=== PATIENT | male | born 1955 | race Caucasian/White ===

== ENCOUNTER → 2019-06-13 | Outpatient (CLI) | payer MEDICARE, OTHER, SELFPAY ==
--- NOTE | 2019-06-13 07:52 | AAAS_ITS ---
Reason For Study: Screening Aorta Measurements Aorta Doppler Measurements Proximal aorta measures1.80 x 1.82cm. in cross- Peak systolic flow velocities within the proximal sectional axis. aorta measure 91.6 cm/sec. Proximal aorta measures1.83cm. in longitudinal Peak systolic flow velocities within the mid aorta axis. measure 112.5 cm/sec. Mid aorta measures1.74 x 1.76cm. in cross- Peak systolic flow velocities within the distal sectional axis. aorta measure 104.5 cm/sec. Mid aorta measures1.72cm. in longitudinal axis. Distal aorta measures1.59 x 1.59cm. in cross- sectional axis. Distal aorta measures1.59cm. in longitudinal axis. Left Iliac Artery Left iliac artery measures 1.20 x 1.18 cm. in the cross-sectional axis. Left iliac artery measures 1.19 cm. in the longitudinal axis. Peak systolic velocity in the left iliac artery measures 119.8 cm/sec. Right Iliac Artery Right iliac artery measures 1.14 x 1.15 cm. in the cross-sectional axis. Right iliac artery measures 1.11 cm. in the longitudinal axis. Peak systolic velocity in the right iliac artery measures 119.8 cm/sec. Procedure Aorta IVC Iliac vasculature or bypass grafts [id number]. Exam performed in department. Interpretation Summary The dimensions of the intra-abdominal aorta are normal, without evidence of aneurysmal dilatation. The iliac arteries are also normal in size bilaterally. The intra-abdominal aorta and iliac arteries appear patent, demonstrating normal, pulsatile arterial flow and peak systolic velocities. Ordering Physician: Terri Stewart Referring Physician: Zeus Posada Performed By: Aixa Garcia RVT
== END | disposition home or self-care (01) ==
LOC: CVS 07:50
PROVIDERS: Family Provider Family Medicine; PCP Family Medicine; Referring Provider Registered Nurse; Visit Provider Registered Nurse
DX: Z13.89 Encounter for screening for other disorder (principal)
CPT/HCPCS: 76706

== ENCOUNTER 2019-09-08 15:21 | Emergency (ER) | payer MEDICARE, OTHER, SELFPAY ==
[2019-09-08 15:22] VITALS: BP 154/77; PULSE 66; PULSE 67; RESP 18; TEMP 37; O2SAT 100; BMI 33.7
--- NOTE | 2019-09-08 15:58 | ED.DCSUM_ITS ---
History of Present Illness Informant: Patient Occurred: Today Mechanism/Context: Fall Onset: Today Context: Sudden Onset Timing: Continuous Quality of Pain: Sharp Location: Left quadricep Current Severity: Moderate Maximum Severity: Severe Worsened by: Movement Relieved by: Rest Associated Symptoms: Negative for: Parasthesia, Weakness, Loss of Funtion Narrative: 64-year-old male presents with left quadricep injury. He slipped on ice earlier. He fell. His leg got caught beneath him. He felt a sharp pop in his distal quad. He is having difficulty walking. No numbness tingling weakness. He did not hit his head or lose consciousness and did not have any prodromal symptoms. He is having significant swelling and is having difficulty walking. He had a similar injury to the right quadricep that required surgery a few years ago. He is not on anticoagulation. Denies any other injuries. Tetanus Immunization: Unknown Prior similar symptoms: Yes Recent Illness/Hospitalization: No <Keyur Curtis - Last Filed: 09/08/19 15:58> <Halley Hidalgo - Last Filed: 09/08/19 23:18> Chief Complaint: Lower Extremity Injury Past Medical History Prior records reviewed: Yes Past Medical History: - - Hyperlipidemia Surgical History: - - Repair right quadriceps tendon Lives: With Family Smoking Status: Never smoker Alcohol: Occasional <Keyur Curtis - Last Filed: 09/08/19 15:58> <Halley Hidalgo - Last Filed: 09/08/19 23:18> - Allergies and Home Meds Allergies/Adverse Reactions: Allergies No Known Allergies Allergy (Verified 09/08/19 15:22) Primary Care Physician: Rosanna Bernal DO [STAFF PHYSICIAN] - (Please call the office tomorrow, you will be seen on by Dr. Bernal) Zeus Posada MD [Primary Care Provider] - Review of Systems All systems negative except as indicated General: Denies: Chills, Fever Eyes: Denies: Visual changes - bilaterally, Blurred Vision - bilaterally ENT: Denies: Rhinorrhea, Sore throat Cardiovascular: Denies: Chest pain, Palpitations Respiratory: Denies: Dyspnea, Cough Gastrointestinal: Denies: Abdominal pain, Nausea, Vomiting, Diarrhea Genitourinary: Denies: Dysuria, Hematuria, Frequency Musculoskeletal: Reports: Swelling, Extremity Pain. Denies: Neck pain, Back pain Skin: Denies: Rash, Abscess, Abrasions, Wounds Neurological: Denies: Weakness, Parasthesia, Numbness Hematologic: Denies: Easy bruising, Easy bleeding <Keyur Curtis - Last Filed: 09/08/19 15:58> Physical Exam Vital Signs/Narrative: Vital Signs Temp Pulse Resp BP Pulse Ox 09/08/19 15:22 98.6 F 67 18 154/77 H 100 Inital Vital Signs reviewed: Yes - Extremity Exam Left Femur: - - Patient has swelling and bruising distal quadricep. Compartments are soft. There is no bony tenderness of the knee. He has no leg swelling or calf tenderness or pain over his Achilles. DP and PT pulses are both normal. He is able to actively plantarflex and dorsiflex normally. He has very limited flexion at the knee due to pain and limited extension but his extensor mechanism is intact. There is no hip pain on palpation or back pain on palpation. General: Well nourished, Well developed Head: Normocephalic, Atraumatic Eyes: Perrl, EOMI ENT: No Trauma, Moist Mucous Membranes Neck: Nontender, Full ROM Cardiovascular: Regular rate, Regular rhythm Respiratory: No distress, CTA bilaterally, Chest nontender Abdomen: Soft, Nontender, Nondistended, Normal bowel sounds, No masses Back: Nontender Skin: Normal color, No rash, No Trauma Neurological: Alert, Oriented x3 Psychological: Normal affect <Keyur Curtis - Last Filed: 09/08/19 15:58> Diagnostic/Tx/Re-eval - Medical Decision Making On exam concern is for a quadricep tendon rupture. He does have an intact extensor mechanism. He is neurovascularly intact distally. Discussed with him that I do not feel imaging is indicated and he is agreeable. I spoke with the on-call orthopedic surgeon Dr. Bernal. Mended that the patient be placed in a knee immobilizer and she will see him in the office on . He was advised to rest ice and elevate. He was offered a prescription for analgesia but declines. He was advised to return for worsening symptoms otherwise follow- up as scheduled. - Critical Care Time Critical care time (excluding procedures): Discussing w/Consultants <Keyur Curtis - Last Filed: 09/08/19 15:58> - Medical Decision Making I have personally performed a [id number] assessment of the patient and have reviewed the PA note. My waters findings include history: 64-year-old male presenting with left lower extremity pain following fall. His extensor mechanism is intact. Painful range of motion. Neurovascularly intact distally. He was put in a knee immobilizer. He will follow-up with orthopedics. Advised return to the ED for worsening complaints. <Halley Hidalgo - Last Filed: 09/08/19 23:18> ED Disposition <Keyur Curtis - Last Filed: 09/08/19 15:58> <Halley Hidalgo - Last Filed: 09/08/19 23:18> - Plan for ED Patient: Disposition: Home or Assisted Living Diagnosis: Quadriceps muscle strain Instructions: MUSCLE STRAIN, Extremity Referrals: Zeus Posada MD [Primary Care Provider] - Rosanna Bernal DO [STAFF PHYSICIAN] - (Please call the office tomorrow, you will be seen on by Dr. Bernal)
== END 2019-09-08 16:12 | disposition home or self-care (01) ==
PROVIDERS: Emergency Provider Physician Assistant Medical; PCP Family Medicine
DX: S76.112A Strain of left quadriceps muscle, fascia and tendon, initial encounter (principal); W00.0XXA Fall on same level due to ice and snow, initial encounter; Y93.01 Activity, walking, marching and hiking; Y92.89 Other specified places as the place of occurrence of the external cause; Y99.8 Other external cause status
CPT/HCPCS: 99283

== ENCOUNTER → 2019-09-12 10:45 | Outpatient (CLI) | payer MEDICARE, OTHER, SELFPAY ==
[2019-09-12 10:36] VITALS: BMI 33.7
--- NOTE | 2019-09-12 10:46 | RAD_ITS ---
STUDY: X-RAY - LEFT KNEE REASON FOR EXAM: Knee swelling. TECHNIQUE: 4 view(s) of the knee. COMPARISON: None. FINDINGS: Normal visualized distal femur. Normal visualized proximal tibia and fibula. Normal proximal tibiofibular articulation. There is mild joint space narrowing of the medial femorotibial compartment. Normal lateral femorotibial compartment. Normal patellofemoral articulation. There is soft tissue swelling anterior to the patella. RAD/Knee 4 or More Views IMPRESSION: Mild arthrosis of the medial femorotibial compartment. Anterior soft tissue swelling. Electronically Signed: Kenton Milligan MD at 14:18 EST Tel , Service support ,
== END ==
PROVIDERS: PCP Family Medicine; Referring Provider Orthopaedic Surgery; Visit Provider Orthopaedic Surgery
DX: M25.562 Pain in left knee (principal)
CPT/HCPCS: 73564

== ENCOUNTER 2019-09-13 06:08 | Day surgery (SDC) | payer MEDICARE, OTHER, SELFPAY ==
[2019-09-12 10:36] VITALS: BMI 33.7
--- NOTE | 2019-09-12 11:19 | HP_ITS ---
I have re-examined the patient. There are no clinical changes since date of exam. Intake Intake Visit Reasons: LEFT KNEE Is patient in pain?: Yes Pain scale (1-10): 1 Allergies No Known Allergies Allergy (Verified 09/12/19 10:34) Medications fenofibrate 40 mg tablet 40 mg PO DAILY 09/12/19 [History Confirmed 09/12/19] PFSH Social History (Updated 09/12/19 @ 12:06 by Rosanna Bernal DO) Smoking Status: Never smoker HPI LEFT KNEE: Surgical H&P: Yes Details: Parts of this documentation were recorded by a scribe, this documentation accurately reflects the service provided and the decisions made by me, Rosanna Bernal DO 09/12/19 1032. HORACE COE is a 64 year old M here today for left knee pain. Patient notes that he slipped on the ice on 09/08/19. Patient heard a pop. He went to the ED. Patient currently has minimal pain. He has been wearing his knee immobilzer at all times. He has swelling of his knee. Patient denies any calf pain. Patient is weightbearing with the immobilizer. Denies numbness, tingling or other associated symptoms. He denies any pain medications. ROS Musc Reports joint pain, Reports joint swelling Skin/Breast Reports system reviewed and no additional complaints, except as docu Neuro Yes system reviewed and no additional complaints, except as docu Ortho Exam Left Knee Skin/Wound: Yes ecchymosis, Yes swelling KNEE: he has palpable defect with no extension mechanism intact No rales rhonchi wheezing, no abdominal pain, no audible bruits Assessment & Plan Problems 1. Injury of left knee, initial encounter S89.92XA 2. Rupture of left quadriceps tendon, initial encounter S76.112A Plan X-rays were reviewed. There is no obvious fracture, dislocation, or lucency noted but effusion. Educated on the anatomy of the knee and explained that we has a quad tendon tear that will need repaired. Reviewed post op restrictions and discussed his upcoming travel. Reviewed the pre-operative plans with the patient. Risks and benefits of the procedure were fully explained, including but not limited to infection, neurovascular injury, continued pain, arthritis, stiffness, need for further surgery, re-injury, DVT, PE, general risks of anesthesia, and loss of limb or life. The patient understands all the risks and does wish to proceed with written consent. Follow up post op or sooner if pain, swelling, numbness or associated symptoms, or concerns develop. All questions answered. Patient in agreement of plan. Orders Orders: Knee 4 or More Views Today M25.562 Coding Level of Care Code Off vis,new,level 3 Diagnoses Injury of left knee, initial encounter S89.92XA ??Encounter type: initial encounter Rupture of left quadriceps tendon, initial encounter S76.112A ??Encounter type: initial encounter 09/12/19 1206 <Electronically signed by Rosanna diggs DO> Date _ Rosanna eBrnal DO
[2019-09-13] VITALS (9 sets, daily range): BP systolic 123–142; BP diastolic 61–80; PULSE 63–77; RESP 16–20; TEMP 36.6–37.5; O2SAT 93–98; BMI 35.4
[2019-09-13] MEDS: Lactated Ringers 1,000 ML 100 ML IV (07:11)
[2019-09-13] MEDS: Cefazolin 2 GM in 0.9% Normal Saline 100 ML IV (07:20)
[2019-09-13] MEDS: Mupirocin Ointment 22gm Tube 1 APPLIC (07:47)
[2019-09-13] MEDS: Bupivacaine Mpf 0.5% 30 ML VIAL (08:57)
--- NOTE | 2019-09-13 08:57 | PCM.DC.ORTHO ---
Discharge Diet: No Restrictions - left leg elevate/ice/ankle pumps as much as possible, follow up on with john wayt for dressing change/brace adjustment, may weight bear with knee brace locked in extension, knee brace at all times locked in extension Discharge Activity: May Not Drive May shower in (days): 1 Ice area for (Minutes): 20 - Every hour while awake. Weight Bearing Status: Weight bearing as tolerated Keep extremity elevated above heart level: Operative Extremity Call your doctor if your incision/area has: Continuous Slow Oozing, Sudden Increased Bleeding, Increased Pain/ Swelling, Increased Redness, Foul Smelling Discharge Call your doctor if you observe: Fever of 101 or Higher, Coldness, Increased Pain, Numbness or Tingling, Change in Color, Calf discomfort Allergies/Adverse Reactions: Allergies No Known Allergies Allergy (Verified 09/12/19 14:00) Medications to take at Discharge Atorvastatin Calcium [Lipitor] 40 mg PO QHS 09/12/19 fenofibrate 40 mg tablet 40 mg PO DAILY 09/12/19 Hydrocodone Bitart/Apap 5-325 [Hoffman 5MG-325MG] 1 - 2 tab PO Q6H PRN PRN 5 Days #40 tab 09/13/19 The following prescriptions were given: Hydrocodone Bitart/Apap 5-325 [Hoffman 5MG-325MG] 1 - 2 tab PO Q6H PRN PRN 5 Days #40 tab PRN Reason: Pain Transmission Status: Received by [facility] Primary Care Physician: Zeus Posada MD [Primary Care Provider] - Test Results: Test results from this visit will be discussed in further detail at your follow-up appointment, if applicable. Please Follow Up With: Rosanna Bernal, - [phone]
--- NOTE | 2019-09-13 08:59 | PCM.OPRPT ---
Report of Operation Date of Procedure: 09/13/19 Pre-Operative Diagnosis: acute left quad tendon rupture Post-Operative Diagnosis: same with lateral retinaculum disruption front office clerk: Manfred Soares Type of Anesthesia:: General Anesthesiologist: Durga Brian Estimated Blood Loss (mL): 50cc Fluids Replaced: 800cc lr Description of Procedure: Preop note Patient is a 64-year-old male who fell slipped his left knee underneath him felt immediate pain at the insertion of his quadriceps on his patella. Went to the emergency room palpated defect seen in the office in our office unable to extend his left knee palpable defect at the insertion of the quad on the patella. This aggression at that point for surgery to revise to ring to reconstruct or start to repair his left quadricep tendon. Patient had a previous right quad rupture about 8 to 10 years ago as well. Risks benefits and alternatives surgery discussed with patient. Risks including but not limited to blood loss, blood clot, infection, neurovascular, failure procedure, loss of life and loss of limb. Patient is aware like proceed with left left quad tendon repair repair as indicated. Operative note Patient seen and examined preoperative holding her. Left leg was marked. Patient brought to the operating room placed supine on the operating table. Signed, anesthesia, antibiotics were administered. The left leg was prepped and draped in usual sterile fashion with a tourniquet around his upper thigh. All bony prominences well-padded SCDs placed on his contralateral limb. We then marked out our incision extending it in flexion from about the superior pole to about 4 to 5 cm proximally. Timeout was performed. We then used a 15 blade to cut through skin dissected down tenotomies to the the quad tendon tear and the hematoma. This was evacuated and a combination of irrigation and suction and expression. We then able to visualize the superior pole of the patella we cleaned off any disease tendon as well as clean off the bed with a rongeur after boating of the soft tissue out for our bony bed for placement of our anchors. We then drilled for our 4.75 swivel lock anchors and then tapped with a 4.75 tap. We then cut off the end and of the quad tendon back to a stable repair cutting off any kind unstable pieces or degenerative looking quad tendon. We then placed 2 screws suture tapes starting medially and a locking Krak?w stitch during about 4 5 proximally and then bring it back down distally and then the same on the lateral using another suture tape laterally we had then 4 and 3 placed 2 medial and 2 lateral through 2 swivel locks respectively. We brought the knee into next into extension and then brought the quad tendon back to bone through the anchor and then see the anchor into the bone in standard technique. We then cut off the suture tendons but use the suture that was in the anchor and use this as an epitendinous repair for further stability and strength. We then took another suture take and placed a cerclage type configuration around the kneecap for again further back up to our repair. The knee was then irrigated with copious amounts of sterile saline. We repaired the lateral retinaculum with a 0 Vicryl. The skin was then closed with 2-0 Vicryl and the skin with luis. Sterile dressings were applied the knee was placed in a brace locked in extension. Patient taught procedure well no complication transfer recovery room in stable condition. Postoperative Hospital has prescriptions Follow-up on with [facility] for dressing change brace adjustment Call with increased pain numbness tingling or issues arise discussed to ice, elevate, ankle pumps and watch for calf pain ie/blood clots, aware of signs/symptoms Brace at all times locked in extension Call with concerns Discussed with This note was generated with [employer] dictation software. It may contain incorrect words, spelling, and punctuation that were not noted in checking the note before signing. Grafts/Implants Used: arthrex quad tendon repair system with suture tape and 4.75 swivelock glendy
[2019-09-13] MEDS: HYDROcodone Bitartrate/Apap 5/325 Tablet PO (11:13)
== END 2019-09-13 12:24 | disposition home or self-care (01) ==
LOC: SDC 06:09 → AC 06:09
PROVIDERS: PCP Family Medicine; Referring Provider Orthopaedic Surgery; Visit Provider Orthopaedic Surgery
PROC: (CPT 27664; principal; 2019-09-13 07:15)
DX: S76.112A Strain of left quadriceps muscle, fascia and tendon, initial encounter (principal); E78.00 Pure hypercholesterolemia, unspecified; Z87.891 Personal history of nicotine dependence; Z79.899 Other long term (current) drug therapy; W00.0XXA Fall on same level due to ice and snow, initial encounter; Y93.01 Activity, walking, marching and hiking; Y92.89 Other specified places as the place of occurrence of the external cause; Y99.8 Other external cause status
CPT/HCPCS: 01470; 27664; C1713; J7120; J2405

== ENCOUNTER 2019-10-23 09:30 | Outpatient (RCR) | payer MEDICARE, OTHER, SELFPAY ==
[2019-09-26 11:01] VITALS: BMI 35.4
--- NOTE | 2019-10-09 09:44 | HP.PTEVAL ---
Patient's Visit Information HORACE COE is a 64 year old M referred to Physical Therapy by Dr. Rosanna Bernal DO with a diagnosis of Left Quad Tendon Repair 09/13/2019. Date of Evaluation: 10/09/19 Physical Therapist: Angie Carbajal DPT - Visit Plan Frequency: 2x /Week Duration: 4 Weeks Plan: Quad Tendon Repair 09/13/19- Focus on LE ROM and strength- GENTLE ROM. - Subjective Findings: Slipped on the ice 6 weeks ago tore quad tendon- Dr. Bernal repaired it 09/13/19. This happened 8 years ago on the other side- someone in [place] repaired it. Saw Dr. Das 2 weeks ago and everything looked good- told him to go slow and steady. If he is sitting around at home they said he could take the brace off and he does not sleep in it but when he out and about he wears it. The brace is locked out. The knee has never been painful. Is not taking pain medication. Is back to driving and was fully I prior to the injury. 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 He plans to get back the first of October. Goals: wants to get back to 100%. Sleep: not disturbed. PMHx/Meds: no changes since he was at the [facility]. - Objective Posture: FH, RS- can correct but does not maintain. Gait: antalgic- brace on left LE locked into extension with ambulation. Decreased stance on the left LE. HR/TR: able. SLS: WS but unable to balance for SLS. Palpation: not tender. ROM: 0-105 degrees without over pressure. Strength: ankle: 5/5, Hip: 4+/5, Core: fair, Knee: Quad visible- minimal lag with SLR. Flex: HS: moderate, Quad: severe, Gastroc: moderate - Goals Goal 1:: Patient will be I with HEP and progression Goal Time Frame: 4-6 Weeks Goal 2:: Patient will ambulate >300 feet with a normalized gait pattern Goal Time Frame: 4-6 Weeks Goal 3:: Patient will SLS for 15 sec without LOB Goal Time Frame: 4-6 Weeks Goal 4:: Patient will demo 0-120 degrees of ROM of the left knee Goal Time Frame: 4-6 Weeks Goal 5:: Patient will asc/desc 8 recip with no HR Goal Time Frame: 4-6 Weeks - Rehabilitation Potential Physical Therapy Diagnosis: Patient presents s/p Quad Tendon Repair 09/13/2019. He has decreased ROM, strength, flex and muscular endurance leadign to abnormal gait and decreased ability to perform ADL's. Rehabilitation Potential: Good - Anticipated Interventions Patient/Client Instruction: Educate patient on: Benefits of Fitness Program Therapeutic Exercise to Include: Strength training, Endurance training, Balance training, Body mechanics, Postural training, Flexibilty training, Gait and locomotor training, Dynamic Lumbar Stabilization For the Purpose of:: To improve muscle performance and motor function Cryotherapy (ice pack, ice massage): Yes Thermo therapy (hot pack): Yes Thank you for the opportunity to evaluate your patient. For Medicare and Medicare HMO plans, please review the plan of care and approve it. It will need to be FAXED BACK to us at [phone] for Medicare purposes. For Medicare only, by signing this I certify the plan of care. Please let me know if there are questions or concerns regarding this plan of care. Physician Signature: Date:
--- NOTE | 2019-10-23 09:54 | HP.PTDCSUM ---
HP - PT D/C Summary It has been my pleasure to treat HORACE COE under orders from Dr. Rosanna Bernal DO, for the diagnosis of Left Quad Tendon Repair 09/13/2019 for a total of 5 visit(s). Discharge Date: Please see the following information for a summary of their discharge status. - Subjective Subjective: Patient reports that he goes back to see the MD tomorrow. Patient reports that he feels the knee is bending a lot better. The stairs are still a little difficult- going up is still hard and is using the handrail. 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 He feels that he is 90% back to normal. Nothing he can't do other than the stairs- does have stairs at home in the basement- where he is 90% better. He would like to continue the exercise at home. - Overall Improvement % Improvement: 90 - Objective Objective/Function: Posture: good throughout. Gait: slightly antalgic- decreased stance on the left LE. HR/TR: able. SLS: 5 sec then LOB. Palpation:not tender. Stairs: as/desc recip with 1 HR- uses UE A for progression to next step. ROM: 0-120 degrees. Strength: 5/5 in LE - Goals Goal 1:: Patient will be I with HEP and progression Goal Progress: Goal Met Goal 2:: Patient will ambulate >300 feet with a normalized gait pattern Goal Progress: Progressing Goal 3:: Patient will SLS for 15 sec without LOB Goal Progress: Progressing Goal 4:: Patient will demo 0-120 degrees of ROM of the left knee Goal Progress: Goal Met Goal 5:: Patient will asc/desc 8 recip with no HR Goal Progress: Progressing - Plan Plan: Discharge to I HEP - D/C Information If there are questions or concerns regarding this patient's physical therapy, please feel free to call me at [phone]. Thank you for the referral of this patient. Sincerely, Angie Carbajal DPT
== END 2019-10-23 19:00 | disposition home or self-care (01) ==
LOC: PT 09:30
PROVIDERS: PCP Family Medicine; Referring Provider Orthopaedic Surgery; Visit Provider Orthopaedic Surgery
DX: Z98.890 Other specified postprocedural states (principal)
CPT/HCPCS: 97110; 97161; 97164

== ENCOUNTER → 2019-10-24 | Outpatient (CLI) | payer MEDICARE, OTHER, SELFPAY ==
[2019-10-24 10:30] VITALS: BMI 35.4
--- NOTE | 2019-10-24 10:50 | RAD_ITS ---
STUDY: X-RAY - RIGHT KNEE REASON FOR EXAM: Postoperative follow-up. TECHNIQUE: 4 view(s) of the knee. COMPARISON: None. FINDINGS: Normal visualized distal femur. Normal visualized proximal tibia and fibula. Normal proximal tibiofibular articulation. There are small marginal osteophytes and mild joint space narrowing of the medial femorotibial compartment. Normal lateral femorotibial compartment. There is mild joint space narrowing of the patellofemoral articulation. There are intra-articular bodies in the suprapatellar recess. There is a small enthesophyte at the inferior pole of the patella. There is anterior soft tissue swelling. RAD/Knee 4 or More Views IMPRESSION: Mild arthrosis of the medial femorotibial and patellofemoral compartments. Intra-articular bodies. Electronically Signed: Kenton Milligan MD at 11:47 EST Tel , Service support ,
== END | disposition home or self-care (01) ==
LOC: HPRAD 10:50
PROVIDERS: PCP Family Medicine; Referring Provider Orthopaedic Surgery; Visit Provider Orthopaedic Surgery
DX: M25.561 Pain in right knee (principal)
CPT/HCPCS: 73564

== ENCOUNTER → 2019-12-02 | Outpatient (CLI) | payer MEDICARE, OTHER, SELFPAY ==
[2019-11-26 09:17] VITALS: BMI 35.4
--- NOTE | 2019-12-02 10:29 | MRI_ITS ---
STUDY: MRI LEFT KNEE REASON FOR EXAM: Anterior pain, quadriceps injury with repair in September with reinjury one week ago. TECHNIQUE: Standardized fat and water weighted pulse sequences were obtained in all 3 orthogonal planes. COMPARISON: Radiographs 10/24/2019. FINDINGS: There is a small radial tear of the posterior horn of the medial meniscus (T2 coronal image 12). There is mild peripheral subluxation of the medial meniscus. There is mild arthrosis of the medial femorotibial compartment with mild chondral thinning of the medial femoral condyle (T2 sagittal image 11). Normal medial femoral condyle and tibial plateau. Normal medial collateral ligamentous complex (MCL). Normal distal semimembranosus, gracilis and semitendinosus tendons. Normal lateral meniscus. Normal hyaline cartilage of the lateral femorotibial compartment. Normal lateral femoral condyle and tibial plateau. Normal proximal tibiofibular articulation. Normal lateral collateral (fibular) ligament. Normal popliteus tendon. Normal biceps femoris tendon. Normal anterior cruciate ligament (ACL). Normal posterior cruciate ligament (PCL). Normal congruent patellofemoral articulation. There is mild arthrosis of the patellofemoral compartment with mild chondral thinning (T2 sagittal image 15). Normal medial and lateral patellar retinaculum. There is a complete recurrent tear of the quadriceps tendon with a gap of at least 4 cm, the tendon stump is retracted superior to the field of view. There is proximal patellar tendinosis (T2 sagittal images 17-20). Normal Hoffa''s fat pad. There is a small joint effusion. There is a hematoma superior to the patella measuring approximately 7.8 cm in transverse dimension (proton density coronal images 27-36). There is edema in the subcutis adipose space. There are anchors in the patella with mild postoperative bone edema of the patella. MRI/Lower Ext Joint Only (Routine) IMPRESSION: Recurrent retracted tear of the quadriceps tendon with hematoma at the superior aspect of the patella. Small radial tear of the medial meniscus. Mild arthrosis of the medial femorotibial and patellofemoral compartments. Proximal patellar tendinosis. Small joint effusion. Electronically Signed: Kenton Milligan MD at 12:55 EDT Tel , Service support ,
== END | disposition home or self-care (01) ==
LOC: MRI 10:29
PROVIDERS: PCP Family Medicine; Referring Provider Orthopaedic Surgery; Visit Provider Orthopaedic Surgery
DX: S86.819A Strain of other muscle(s) and tendon(s) at lower leg level, unspecified leg, initial encounter (principal)
CPT/HCPCS: 73721

== ENCOUNTER 2019-12-04 05:53 | Day surgery (SDC) | payer MEDICARE, OTHER, SELFPAY ==
[2019-12-03 09:33] VITALS: BMI 35.4
--- NOTE | 2019-12-03 10:41 | HP_ITS ---
I have re-examined the patient. There are no clinical changes since date of exam. Intake Intake Visit Reasons: left knee Is patient in pain?: Yes Pain scale (1-10): 1 Allergies No Known Allergies Allergy (Verified 09/12/19 14:00) FOR[facility]LY [facility] Social History (Updated 12/03/19 @ 10:[address] Rosanna Bernal, ) Smoking Status: Former smoker HPI left knee: Surgical H&P: Yes Details: Parts of this documentation were recorded by a scribe, this documentation accurately reflects the service provided and the decisions made by me, Dr. Rosanna Bernal, 12/03/19 0931. HORACE COE is a 64 year old M here today for MRI f/u, he continues to have mild pain but is wearing the post op brace from his last surgery on 09/13/2019. He states that the swelling has decreased, he does not require any pain medications at this point. He denies any calf pain or swelling. Denies numbness, tingling or other associated symptoms. ROS Musc Reports as per HPI, Reports abnormal walking, Reports joint pain, Reports joint swelling Skin/Breast Reports as per HPI Neuro Yes as per HPI, Yes abnormal walking Negative Homans sign hematoma left quad seen today prior to surgery, unable to extend LEFT KNEE Assessment & Plan Problems 1. Rupture of left quadriceps muscle, sequela S76.112S Plan Reviewed the pre-operative plans with the patient. Risks and benefits of the procedure were fully explained, including but not limited to infection, neurovascular injury, continued pain, arthritis, stiffness, need for further surgery, re-injury, DVT, PE, general risks of anesthesia, and loss of limb or life. The patient understands all the risks and does wish to proceed with written consent at time of surgery. discussed stopping smoking and patient states his kids have been after him to do so as well. discussed risks of rupture d/t smoking, etc. will do graft repair quad tendon . arthrex notified. All questions answered. Patient in agreement of plan.Follow up 2 wks after surgery or sooner if pain, swelling, numbness or associated symptoms, or concerns develop. Coding Level of Care Code Off vis,est,level 4 Diagnoses Rupture of left quadriceps muscle, sequela S76.112S ??Laterality: left ??Encounter type: sequela 12/03/19 1042 <Electronically signed by Rosanna diggs DO> Date _ Rosanna Bernal DO
[2019-12-04] VITALS (16 sets, daily range): BP systolic 123–139; BP diastolic 65–83; PULSE 57–66; RESP 14–16; TEMP 36.2–36.9; O2SAT 93–100; BMI 34.7
[2019-12-04] MEDS: Cefazolin 2 GM in 0.9% Normal Saline 100 ML IV (07:30)
[2019-12-04] MEDS: Lactated Ringers 1,000 ML 100 ML IV (08:51)
[2019-12-04] MEDS: Mupirocin Ointment 22gm Tube 1 APPLIC (10:41)
[2019-12-04] MEDS: Bupivacaine Mpf 0.5% 30 ML VIAL (10:42)
--- NOTE | 2019-12-04 10:45 | DCINST_ITS ---
Discharge Diet: No Restrictions - Leave brace locked in extension, nonweightbearing left leg, crutches at all times, brace at all times, follow-up on Monday for dressing change and evaluation of incision, call with concerns, elevate ice ankle pumps as much as possible, call with calf pain or swelling, Discharge Activity: May Not Drive May shower in (days): 1 Ice area for (Minutes): 20 - Every hour while awake. Weight Bearing Status: Weight bearing as tolerated Keep extremity elevated above heart level: Operative Extremity Call your doctor if your incision/area has: Continuous Slow Oozing, Sudden Increased Bleeding, Increased Pain/ Swelling, Increased Redness, Foul Smelling Discharge Call your doctor if you observe: Fever of 101 or Higher, Coldness, Increased Pain, Numbness or Tingling, Change in Color, Calf discomfort Allergies/Adverse Reactions: Allergies No Known Allergies Allergy (Verified 12/03/19 13:30) Medications to take at Discharge Atorvastatin Calcium [Lipitor] 40 mg PO QHS 09/12/19 fenofibrate 40 mg tablet 40 mg PO DAILY 09/12/19 escitalopram oxalate 20 mg tablet 20 mg PO DAILY 09/19/19 traZODone [Desyrel] 100 mg PO QHS 12/03/19 Aspirin [Aspirin, Baby] 81 mg PO DAILY@0800 12/04/19 Primary Care Physician: Zeus Posada MD [Primary Care Provider] - Test Results: Test results from this visit will be discussed in further detail at your follow- up appointment, if applicable. Please Follow Up With: Rosanna Bernal, DO - [phone]
--- NOTE | 2019-12-04 10:46 | PCM.OPRPT ---
Report of Operation Date of Procedure: 12/04/19 Pre-Operative Diagnosis: Left acute quad tendon tear history of previous surgical repair Post-Operative Diagnosis: Same Surgery/Procedure Performed:: Left quad tendon repair with allograft software product specialist: Brittany Lee Type of Anesthesia:: General Anesthesiologist: Durga Brian Estimated Blood Loss (mL): MIN Fluids Replaced: 1400CC LR Description of Procedure: Preoperative Patient is 64-year-old male well-known to me smoking history as well as other comorbidities among issues. Patient has a history of a right quad tendon tear he had a left quad tendon repair but that was fixed by myself available about 3 months ago. Went to take a dog medicine felt tearing of his left quad MRI confirms complete tear of his MRI of his quad tendon discussion was made to repair as is 4 cm retracted and unable to extend leg. Risk benefits alternatives surgery discussed with patient risk including but not limited to blood loss, blood clot, infection, neurovascular, failure procedure, loss of life and loss of limb. Patient is aware would like proceed with left quad tendon repair possible allograft. Operative note Patient seen and examined preop holding area. Left leg was marked. Patient brought to the operating room placed supine on the operating table. Signed, anesthesia, antibiotics were administered. Left leg was prepped and draped in usual sterile fashion with tourniquet on his upper thigh. All bony prominences well-padded SCDs placed on his contralateral limb. We marked out our incision from her previous scar. The left leg was elevated segmented tourniquet raised her pressure 250 torr. We then use a 15 blade to make her incision we had obvious hematoma that was evacuated at that time. We dissected down he had extensive adhesions that were released. He also torn both his medial and lateral retinaculum. We then irrigated the gross hematoma that was throughout we note that he actually had not healed at the fracture site is sutures were removed from the previous repair as well as from the anchors we then copiously debrided again the superior aspect of the patella to bleeding bone. We then drilled the fiber triple loaded fiber Arthrex tack sutures through the bone and then flipped on the inferior pole. We then ran our stitches we did to laterally and 2 medially into the tendon and then brought the tendon down to bone at that point we did prior to this please note that we debrided back the degenerative tendon as well as some scar tissue that was around the tear. We had about a centimeter half a centimeter gap just superiorly at the repair site after repairing the quad tendon back down to reduce the discussion previously with the patient was to use a graft as we did use an Arthrex SCR graft to fill in the void. We used the 2 remaining sutures one from each anchor and placed in a mattress configuration the center of the graft and then oversewed the outside of the graft and attention to to the retinaculum on either side in order to repair and reinforce the retinaculum as we had placed the graft horizontal over the repair site. We had asked extension both medial laterally and which aided reinforcing a retinacular repair as well. This was done with 0 Vicryl. Please note that we also sewed any remaining retinacular repair tear with the 0 Vicryl. Multiple times throughout the case we did irrigate the incision with copious muscle sterile saline. We closed and closed the skin with 2-0 Vicryl and 6 subcuticular and the skin with luis. Sterile dressings were applied. Brace was locked in extension was applied to the left leg. Total working time and tourniquet was 92 minutes. Patient transferred recovery room in stable condition patient no complications will follow-up in 1 week Discussed will discuss with daughter Postoperative note Elevate ice ankle pumps Has pain medications Follow-up in 1 week for dressing change and evaluation of incision Nonweightbearing left leg brace locked in extension at all times Call with increased pain numbness tingling further issues arises This note was generated with Mavination software. It may contain incorrect words, spelling, and punctuation that were not noted in checking the note before signing.
--- NOTE | 2019-12-06 09:29 | HP.PCM_ITS ---
History and Physical Date of Admission: 12/04/19 addend to original h/p Essential Procedure Criteria Procedure Essential: Yes Criteria Note: On 11/05/2019 the [place] [facility] ([facility]) Public Order signed by [facility] Director Jesica Capellan M.D., regarding the Management of Non-Essent ial Surgeries and Procedures for the purpose of preserving Personal Protective Equipment (PPE) and critical hospital capacity and resources within [place] went into effect as of 11/06/2019 at 5:00PM. According to the [facility] Public Order: This action will remain in full force and effect until the State of Emergency declared by the Governor no longer exists or the Director of the [facility] rescinds or modifies this Order.. This [facility] order stated all non-essential or elective surgeries and procedures that utilize PPE should be delayed unless there is undue risk to the current or future health of a patient. After reviewing the aforementioned [facility] Public Order and the patients clinical case, I have determined that the scheduled procedure meets the criteria to go forward. Risk to Patient if Procedure Delayed: Threat of permanent dysfunction of an extremity or organ system
--- NOTE | 2019-12-06 09:29 | PCM.HP.BLA ---
History and Physical Date of Admission: 12/04/19 addend to original h/p Essential Procedure Criteria Procedure Essential: Yes Criteria Note: On 11/05/2019 the [place] [facility] ([facility]) Public Order signed by [facility] Director Jesica Capellan M.D., regarding the Management of Non-Essential Surgeries and Procedures for the purpose of preserving Personal Protective Equipment (PPE) and critical hospital capacity and resources within [place] went into effect as of 11/06/2019 at 5:00PM. According to the [facility] Public Order: This action will remain in full force and effect until the State of Emergency declared by the Governor no longer exists or the Director of the [facility] rescinds or modifies this Order.. This [facility] order stated all non-essential or elective surgeries and procedures that utilize PPE should be delayed unless there is undue risk to the current or future health of a patient. After reviewing the aforementioned [facility] Public Order and the patients clinical case, I have determined that the scheduled procedure meets the criteria to go forward. Risk to Patient if Procedure Delayed: Threat of permanent dysfunction of an extremity or organ system
== END 2019-12-04 14:00 | disposition home or self-care (01) ==
LOC: SDC 05:55 → AC 05:55
PROVIDERS: PCP Family Medicine; Referring Provider Orthopaedic Surgery; Visit Provider Orthopaedic Surgery
PROC: (CPT 27665; principal; 2019-12-04 07:15)
DX: S76.112S Strain of left quadriceps muscle, fascia and tendon, sequela (principal); E78.00 Pure hypercholesterolemia, unspecified; Z87.891 Personal history of nicotine dependence; Z79.82 Long term (current) use of aspirin; Z79.899 Other long term (current) drug therapy; X58.XXXA Exposure to other specified factors, initial encounter; Y93.89 Activity, other specified; Y92.89 Other specified places as the place of occurrence of the external cause; Y99.8 Other external cause status
CPT/HCPCS: 27665 ×3; C1713; J7120; J2405

== ENCOUNTER 2020-01-17 07:30 | Outpatient (RCR) | payer MEDICARE, OTHER, SELFPAY ==
[2019-12-17 09:11] VITALS: BMI 34.7
--- NOTE | 2019-12-18 09:53 | HP.PTEVAL ---
Patient's Visit Information HORACE COE is a 64 year old M referred to Physical Therapy by Dr. Rosanna Bernal DO with a diagnosis of L knee s/p quad tendon repair 12/03.. Date of Evaluation: 12/18/19 Physical Therapist: Octavio Mckay, DPT, OCS, CSCS - Visit Plan Frequency: 2-3x /Week Duration: 2 Months Plan: 2-3x/week as needed for 6-8 weeks for ... (pt is PWB L with crutches, but did not use them to get into therapy day one...also he is limited in ROM L knee to 30 degrees until 12/30, 60 degrees 01/13 and 90 until 01/27). Work on ROM within limitations, Strengthen of hip and knee (PWB L), gait training as needed with crutches ad balance work. Stretch HS and ITB and hip flexor. scar massage. - Subjective Subjective: Tore quad tendon for the second time. First tear was August and was repaired and in brace. Second time was about a month ago and tried to kick something and missed adn the force tore it with suddent pain. Now has brace on after repair three weeks ago loccked in extension. I am supposed to be on crutches PWB bbut did not bring them this morning. Not in pain. Sleeping is not great as he is not doing much to wear him out. Enjoys outside work but not able due to knee right now. 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 Lst one was early october. Was doing well prior to retear but had to do steps sideways. Current precautions are brace and crutches x 6 weeks according to patient. - Objective Walking FWB with brace locked at 0 degrees into therapy I today. Trasnfers I. Given crutches as he is supposed to WB partial. he is able to do this Mod I albeit slow. Steps are with R only and rail and crutch mod I but slow. R AROM knee 0-125, L knee 0-40, with limitation to 30 currently for first two weeks. Meeting this easily and without pain. Incision is healed well and only minimal scar tissue. No excessive swelling or heat or redness. HS and gastroc is min tight. Quad L not tested. Hip AROM WFL B. 3+ abd and ext adn 3 flexion B. ankle WFL B. strength ankles 4/5. L knee strength not tested, R knee 4+/5. - Goals Goal 1:: Progress with AROM per script with 0-120 in 2 months Goal Time Frame: 6-8 Weeks Goal 2:: Patient walk without gait deviation as allowed by script to FWB and reciprocal steps as allowed Goal Time Frame: 6-8 Weeks Goal 3:: LEFS<33% disablity. Goal Time Frame: 6-8 Weeks Goal 4:: Patient feel 90% back to normal in activities. Goal Time Frame: 6-8 Weeks - Rehabilitation Potential Physical Therapy Diagnosis: L knee quad tendon repair with stiffness and weakness and decreased function/mobility. Rehabilitation Potential: Fair - Anticipated Interventions Patient/Client Instruction: Educate patient on: Condition, Plan of Care For the Purpose of:: To increase ROM, To improve muscle performance and motor function, To increase tolerance to activity/condition/position, To improve performance and independence with ADL's Therapeutic Exercise to Include: Strength training, Flexibilty training, Passive ROM, Active ROM For the Purpose of:: To decrease pain, To increase ROM, To improve muscle performance and motor function, To increase tolerance to activity/condition/position, To improve ability of physical actions for home/community/work/leisure, To improve gait and locomotor functions Manual Therapy Techniques to Include: Scar massage, Soft tissue mobilization For the Purpose of:: To increase ROM Thank you for the opportunity to evaluate your patient. For Medicare and Medicare HMO plans, please review the plan of care and approve it. It will need to be FAXED BACK to us at [phone] for Medicare purposes. For Medicare only, by signing this I certify the plan of care. Please let me know if there are questions or concerns regarding this plan of care. Physician Signature: Date:
--- NOTE | 2020-01-10 09:46 | HP.PTREVAL ---
Dr. Rosanna Bernal, DO, It has been my pleasure to treat HORACE COE over the last 10 visits for L knee s/p quad tendon repair 12/03.. Please see the progress note below for an update on the physical therapy plan of care! Subjective: Doing super. No pain. Crutches at times, brace much of time. Seeing doctor next week. Sleeping OK. Objective/Function: 0-95 AROM today. SLR without quad lag. Walking with crutches todayinto therapy without brace but says he is using it locked at home. PWB without brace witnessed today. Questionable compliance with home bracing. Doing well despite this. Pain is doing very well adn motion has been ahead of prescribed protocol throughout time in therapy. Appropriate to continue PT once limitations relaxed on WB/brace and ROM. Plan Plan: pt to doctor next weeka nd will f/u with PT. Plan is 2x/week for 3-4 weeks for strenght, ROM asl allowed and gait as allowed by doctor. Goals Goal 1:: Progress with AROM per script with 0-120 in 2 months Goal Time Frame: 6-8 Weeks Goal Progress: Progressing Goal 2:: Patient walk without gait deviation as allowed by script to FWB and reciprocal steps as allowed Goal Time Frame: 6-8 Weeks Goal Progress: Progressing Goal 3:: LEFS<33% disablity. Goal Time Frame: 6-8 Weeks Goal 4:: Patient feel 90% back to normal in activities. Goal Time Frame: 6-8 Weeks Goal Progress: Progressing Anticipated Interventions Patient/Client Instruction: Educate patient on: Condition, Plan of Care For the Purpose of:: To increase ROM, To improve muscle performance and motor function, To increase tolerance to activity/condition/position, To improve performance and independence with ADL's Therapeutic Exercise to Include: Strength training, Flexibilty training, Passive ROM, Active ROM For the Purpose of:: To decrease pain, To increase ROM, To improve muscle performance and motor function, To increase tolerance to activity/condition/position, To improve ability of physical actions for home/community/work/leisure, To improve gait and locomotor functions Manual Therapy Techniques to Include: Scar massage, Soft tissue mobilization For the Purpose of:: To increase ROM Please do not hesitate to contact me at [phone] by phone or if you have questions or concerns regarding this new plan of care! Sincerely, Octavio Mckay, DPT, OCS, CSCS
--- NOTE | 2020-01-17 07:51 | HP.PTDCSUM ---
It has been my pleasure to treat HORACE COE referred by Dr. Rosanna Bernal DO, with the diagnosis of L knee s/p quad tendon repair 12/03. for a total of 11 visit(s). Discharge Date: 01/17/20 Please see the following information for a summary of their discharge status. Subjective: Saw doctor adn will see again in 6 weeks. She said he is doing well and no more therapy needed. Is WBAT withbrace locked and will f/u in 6 weeks with doctor. No pain. None since surgery. Sleeping OK with knee. 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 Activities at home pretty normal except for straight leg. % Improvement: 90 Objective/Function: 0-101 ARM today easily. stiffness after that. SLR without lag today. Walking brace locked I without AD today. Steps with right only. Getting around well. Wants to be done with PT vs continued ROM. Will see doctor in 6 weeks adn return if needed at that point. Goal 1:: Progress with AROM per script with 0-120 in 2 months Goal Progress: Progressing Goal 2:: Patient walk without gait deviation as allowed by script to FWB and reciprocal steps as allowed Goal Progress: Progressing Goal 3:: LEFS<33% disablity. Goal 4:: Patient feel 90% back to normal in activities. Goal Progress: Goal Met Plan: d/c pt request. If there are questions or concerns regarding this patient's physical therapy, please feel free to call me at [phone]. Thank you for the referral of this patient. Sincerely, Octavio Mckay, DPT, OCS, CSCS
== END 2020-01-17 19:00 | disposition home or self-care (01) ==
LOC: PT 07:30
PROVIDERS: PCP Family Medicine; Referring Provider Orthopaedic Surgery; Visit Provider Orthopaedic Surgery
DX: Z98.890 Other specified postprocedural states (principal)
CPT/HCPCS: 97110; 97140; 97162; 97164; 97530

== ENCOUNTER 2022-12-14 14:40 | Outpatient (CLI) | payer MEDICARE, OTHER, SELFPAY ==
[2022-12-14] MEDS: 0.9% NaCl Peripheral Flush Adult/Peds IV ×2 (14:57→15:43)
[2022-12-14] MEDS: 0.9% NaCl IVPB Med Flush (250 mL) 15 ML IV (14:58)
[2022-12-14 15:01] VITALS: BP 119/59; PULSE 78; RESP 16; TEMP 36; O2SAT 98; BMI 29.5
[2022-12-14 15:44] VITALS: BP 112/48; PULSE 65
== END 2022-12-14 14:41 | disposition home or self-care (01) ==
LOC: MEDOUTP 14:43
PROVIDERS: PCP Family Medicine; Referring Provider Registered Nurse; Visit Provider Registered Nurse
DX: K75.0 Abscess of liver (principal)
CPT/HCPCS: 96365; J7050; A4216

== ENCOUNTER 2022-12-15 13:56 | Outpatient (CLI) | payer MEDICARE, OTHER, SELFPAY ==
[2022-12-15] MEDS: 0.9% NaCl PICC Flush IV ×2 (14:03→15:01)
[2022-12-15] MEDS: 0.9% NaCl IVPB Med Flush (250 mL) 15 ML IV (14:04)
[2022-12-15 14:11] VITALS: BP 111/51; PULSE 58; RESP 16; TEMP 36.4; O2SAT 100
[2022-12-15 15:03] VITALS: BP 117/54; PULSE 59; RESP 16
== END 2022-12-15 13:57 | disposition home or self-care (01) ==
LOC: MEDOUTP 13:57
PROVIDERS: PCP Family Medicine; Referring Provider Registered Nurse; Visit Provider Registered Nurse
DX: K75.0 Abscess of liver (principal)
CPT/HCPCS: 96365; J7050; A4216

== ENCOUNTER 2022-12-16 13:19 | Outpatient (CLI) | payer MEDICARE, OTHER, SELFPAY ==
[2022-12-16 13:38] VITALS: BP 104/47; PULSE 102; RESP 16; TEMP 36.2; O2SAT 100; BMI 29.8
[2022-12-16] MEDS: 0.9% NaCl PICC Flush IV ×2 (13:44→15:03)
[2022-12-16 13:57] LABS: Absolute Lymphocyte Count 1.11 X10^3/uL (0.83-4.51); Basophil# 0.03 X10^3/uL; Basophil% 0.4 % (0-1); Eosinophil# 0.06 X10^3/uL; Eosinophils% 0.8 % (0-5); Hematocrit 30.4 % (40-54); Hemoglobin 9.3 g/dL (13.0-16.5); Lymphocyte # 1.11 X10^3/ul (0.83-4.51); Lymphocyte % 14.2 % (19-41); Mean Corp Hgb Conc 30.6 g/dL (32-36); Mean Corpuscular Hgb 26.6 pg (27.0-32.0); Mean Corpuscular Volume 86.9 fL (80-94); Mean Platelet Vol. 8.4 fl (6.2-12.0); Monocyte# 0.39 X10^3/uL; NRBC Flagged by Analyzer 0 % (0-5); Neutrophil # 5.95 X10^3/uL (2.7-7.7); Neutrophil % 75.9 % (47-70); Platelet Count 314 K/mm3 (150-450); RBC Distribution Width CV 15.5 % (11.6-14.6); RBC Distribution Width SD 48.5 fl (35.1-43.9); White Blood Count 7.8 K/mm3 (4.4-11.0)
[2022-12-16] MEDS: 0.9% NaCl IVPB Med Flush (250 mL) 15 ML IV (13:58)
[2022-12-16 14:15] LABS: ALB/GLOB Ratio 0.6 RATIO (0.9-2.4); AST(SGOT) 26 U/L (15-37); Alanine Aminotransfer ALT/SGPT 33 U/L (16-61); Albumin, Serum 2.1 g/dL (3.2-5.0); Alkaline Phosphatase 141 U/L (45-117); Anion Gap 2 (5-15); BUN 23 mg/dL (7-18); BUN/Creat Ratio 21.9 RATIO (10-20); Calcium,Total 8.5 mg/dL (8.5-10.1); Chloride 113 mmol/L (98-107); Creatinine, Serum 1.05 mg/dL (0.70-1.30); EST Glomerular Filtration Rate 75 mL/min (>60); Est Glom Filt Rate - Afr Amer 90 mL/min (>60); Estimated Creatinine Clearance 67.33 ml/min; Globulin 3.7 g/dL (2.2-4.2); Glucose 112 mg/dL (74-106); Potassium 4.1 mmol/L (3.5-5.1); Protein, Total 5.8 g/dL (6.4-8.2); Sodium Level 141 mmol/L (136-145)
[2022-12-16 14:22] LABS: Procalcitonin 0.14 ng/mL (0.00-0.09)
[2022-12-16 15:04] VITALS: BP 111/51; PULSE 55; RESP 16
== END 2022-12-16 13:20 | disposition home or self-care (01) ==
LOC: MEDOUTP 13:19
PROVIDERS: PCP Family Medicine; Referring Provider Registered Nurse; Visit Provider Registered Nurse
DX: K75.0 Abscess of liver (principal)
CPT/HCPCS: 96365; 36592; 80053; 84145; 85025; 86140; J7050; A4216

== ENCOUNTER 2022-12-17 12:54 | Outpatient (CLI) | payer MEDICARE, OTHER, SELFPAY ==
[2022-12-17 13:06] VITALS: BP 122/56; PULSE 58; RESP 18; TEMP 36.4; O2SAT 99
[2022-12-17] MEDS: 0.9% NaCl IVPB Med Flush (250 mL) 15 ML IV (13:06)
[2022-12-17] MEDS: 0.9% NaCl PICC Flush IV (13:06)
== END 2022-12-17 14:08 | disposition home or self-care (01) ==
LOC: MEDOUTP 12:56 → MS3 12:56
PROVIDERS: PCP Family Medicine; Referring Provider Registered Nurse; Visit Provider Registered Nurse
DX: K75.0 Abscess of liver (principal)
CPT/HCPCS: 96365; J7050; A4216

== ENCOUNTER 2022-12-18 12:59 | Outpatient (CLI) | payer MEDICARE, OTHER, SELFPAY ==
[2022-12-18] MEDS: 0.9% NaCl IVPB Med Flush (250 mL) 15 ML IV (13:08)
[2022-12-18] MEDS: 0.9% NaCl PICC Flush IV ×2 (13:09→14:05)
[2022-12-18 13:13] VITALS: BP 133/66; PULSE 58; RESP 18; TEMP 37.1; O2SAT 96
== END 2022-12-18 14:05 | disposition home or self-care (01) ==
LOC: MEDOUTP 12:59 → MS3 13:00
PROVIDERS: PCP Family Medicine; Referring Provider Registered Nurse; Visit Provider Registered Nurse
DX: K75.0 Abscess of liver (principal)
CPT/HCPCS: 96365; J7050; A4216

== ENCOUNTER 2022-12-19 13:47 | Outpatient (CLI) | payer MEDICARE, OTHER, SELFPAY ==
[2022-12-19 14:03] VITALS: BP 131/61; PULSE 58; RESP 16; TEMP 36.6; O2SAT 100
[2022-12-19] MEDS: 0.9% NaCl PICC Flush IV ×2 (14:04→15:15)
[2022-12-19] MEDS: 0.9% NaCl IVPB Med Flush (250 mL) 15 ML IV (14:06)
[2022-12-19 15:18] VITALS: BP 121/50; PULSE 63; RESP 16; TEMP 36.7; O2SAT 100
== END 2022-12-19 13:48 | disposition home or self-care (01) ==
LOC: MEDOUTP 13:47
PROVIDERS: PCP Family Medicine; Referring Provider Registered Nurse; Visit Provider Registered Nurse
DX: K75.0 Abscess of liver (principal)
CPT/HCPCS: 96365; J7050; A4216

== ENCOUNTER 2022-12-20 13:46 | Outpatient (CLI) | payer MEDICARE, OTHER, SELFPAY ==
[2022-12-20 13:55] VITALS: BP 125/56; PULSE 59; RESP 16; TEMP 36.2
[2022-12-20] MEDS: 0.9% NaCl PICC Flush IV ×2 (14:01→15:00)
[2022-12-20] MEDS: 0.9% NaCl IVPB Med Flush (250 mL) 15 ML IV (14:01)
[2022-12-20 15:02] VITALS: BP 122/65; PULSE 72; RESP 16; O2SAT 99
== END 2022-12-20 13:47 | disposition home or self-care (01) ==
LOC: MEDOUTP 13:46
PROVIDERS: PCP Family Medicine; Referring Provider Registered Nurse; Visit Provider Registered Nurse
DX: K75.0 Abscess of liver (principal)
CPT/HCPCS: 96365; J7050; A4216

== ENCOUNTER 2022-12-21 13:41 | Outpatient (CLI) | payer MEDICARE, OTHER, SELFPAY ==
[2022-12-21 13:45] VITALS: BP 125/59; PULSE 56; RESP 16; TEMP 36.4; O2SAT 100; BMI 29.8
[2022-12-21] MEDS: 0.9% NaCl IVPB Med Flush (250 mL) 15 ML IV (13:57)
[2022-12-21] MEDS: 0.9% NaCl PICC Flush IV ×2 (13:57→14:52)
[2022-12-21 14:54] VITALS: BP 116/58; PULSE 61; RESP 16
== END 2022-12-21 13:42 | disposition home or self-care (01) ==
LOC: MEDOUTP 13:41
PROVIDERS: PCP Family Medicine; Referring Provider Registered Nurse; Visit Provider Registered Nurse
DX: K75.0 Abscess of liver (principal)
CPT/HCPCS: 96365; J7050; A4216

== ENCOUNTER 2022-12-22 14:15 | Outpatient (CLI) | payer MEDICARE, OTHER, SELFPAY ==
[2022-12-22] MEDS: 0.9% NaCl PICC Flush IV ×3 (15:02→16:00)
[2022-12-22] MEDS: 0.9% NaCl IVPB Med Flush (250 mL) 15 ML IV (15:03)
[2022-12-22 15:04] VITALS: BP 119/59; PULSE 62; RESP 16; TEMP 36.6; O2SAT 100
[2022-12-22 15:27] LABS: Absolute Lymphocyte Count 0.95 X10^3/uL (0.83-4.51); Absolute Neutrophil Count 7.8 X10^3/uL (2.0-7.7); Basophil# 0.03 X10^3/uL; Basophil% 0.3 % (0-1); Eosinophil# 0.05 X10^3/uL; Eosinophils% 0.5 % (0-5); Hematocrit 30.8 % (40-54); Hemoglobin 9.4 g/dL (13.0-16.5); Lymphocyte # 0.95 X10^3/ul (0.83-4.51); Lymphocyte % 9.9 % (19-41); Mean Corp Hgb Conc 30.5 g/dL (32-36); Mean Corpuscular Hgb 26.1 pg (27.0-32.0); Mean Corpuscular Volume 85.6 fL (80-94); Mean Platelet Vol. 8.9 fl (6.2-12.0); Monocyte# 0.68 X10^3/uL; Monocyte% 7.1 % (0-10); NRBC Flagged by Analyzer 0 % (0-5); Neutrophil # 7.81 X10^3/uL (2.7-7.7); Neutrophil % 81.1 % (47-70); Platelet Count 279 K/mm3 (150-450); RBC Distribution Width CV 15.4 % (11.6-14.6); RBC Distribution Width SD 47.2 fl (35.1-43.9); White Blood Count 9.6 K/mm3 (4.4-11.0)
[2022-12-22 15:43] LABS: ALB/GLOB Ratio 0.7 RATIO (0.9-2.4); AST(SGOT) 16 U/L (15-37); Alanine Aminotransfer ALT/SGPT 19 U/L (16-61); Albumin, Serum 2.5 g/dL (3.2-5.0); Alkaline Phosphatase 143 U/L (45-117); Anion Gap 8 (5-15); BUN 20 mg/dL (7-18); BUN/Creat Ratio 19.6 RATIO (10-20); Calcium,Total 8.5 mg/dL (8.5-10.1); Chloride 106 mmol/L (98-107); Creatinine, Serum 1.02 mg/dL (0.70-1.30); EST Glomerular Filtration Rate 77 mL/min (>60); Est Glom Filt Rate - Afr Amer 93 mL/min (>60); Globulin 3.8 g/dL (2.2-4.2); Glucose 100 mg/dL (74-106); Potassium 4.1 mmol/L (3.5-5.1); Protein, Total 6.3 g/dL (6.4-8.2); Sodium Level 139 mmol/L (136-145)
[2022-12-22 16:01] VITALS: BP 123/53; PULSE 64; RESP 16; TEMP 36.8
[2022-12-23 13:47] LABS: Procalcitonin 0.14 ng/mL (0.00-0.09)
== END 2022-12-22 14:16 | disposition home or self-care (01) ==
LOC: MEDOUTP 14:15
PROVIDERS: PCP Family Medicine; Referring Provider Registered Nurse; Visit Provider Registered Nurse
DX: K75.0 Abscess of liver (principal)
CPT/HCPCS: 96365; 36592; 80053; 84145; 85025; 86140; J7050; A4216

== ENCOUNTER 2022-12-23 13:13 | Outpatient (CLI) | payer MEDICARE, OTHER, SELFPAY ==
[2022-12-23 13:29] VITALS: BP 106/59; PULSE 56; RESP 16; TEMP 35.8; O2SAT 100; BMI 29.8
[2022-12-23] MEDS: 0.9% NaCl IVPB Med Flush (250 mL) 15 ML IV (13:32)
[2022-12-23] MEDS: 0.9% NaCl PICC Flush IV ×2 (13:33→14:35)
== END 2022-12-23 13:14 | disposition home or self-care (01) ==
LOC: MEDOUTP 13:13
PROVIDERS: PCP Family Medicine; Referring Provider Registered Nurse; Visit Provider Registered Nurse
DX: K75.0 Abscess of liver (principal)
CPT/HCPCS: 96365; J7050; A4216

== ENCOUNTER 2022-12-24 11:46 | Outpatient (CLI) | payer MEDICARE, OTHER, SELFPAY ==
[2022-12-24] MEDS: 0.9% NaCl PICC Flush IV ×2 (13:15→14:28)
== END 2022-12-24 11:47 | disposition home or self-care (01) ==
LOC: MEDOUTP 12-27 11:46
PROVIDERS: PCP Family Medicine; Referring Provider Registered Nurse; Visit Provider Registered Nurse
DX: K75.0 Abscess of liver (principal)
CPT/HCPCS: 96365; A4216

== ENCOUNTER 2022-12-28 05:51 | Outpatient (CLI) | payer MEDICARE, OTHER, SELFPAY ==
[2022-12-28] VITALS (9 sets, daily range): BP systolic 105–158; BP diastolic 51–87; PULSE 55–64; RESP 13–20; TEMP 36.9; O2SAT 97–100; BMI 29.8
[2022-12-28 07:38] LABS: Absolute Lymphocyte Count 1.26 X10^3/uL (0.83-4.51); Absolute Neutrophil Count 4.4 X10^3/uL (2.0-7.7); Basophil# 0.03 X10^3/uL; Basophil% 0.4 % (0-1); Eosinophil# 0.28 X10^3/uL; Eosinophils% 4.2 % (0-5); Hematocrit 32.9 % (40-54); Hemoglobin 9.8 g/dL (13.0-16.5); Lymphocyte # 1.26 X10^3/ul (0.83-4.51); Lymphocyte % 18.7 % (19-41); Mean Corp Hgb Conc 29.8 g/dL (32-36); Mean Corpuscular Hgb 26.5 pg (27.0-32.0); Mean Corpuscular Volume 88.9 fL (80-94); Mean Platelet Vol. 9.3 fl (6.2-12.0); Monocyte# 0.53 X10^3/uL; Monocyte% 7.9 % (0-10); NRBC Flagged by Analyzer 0 % (0-5); Neutrophil # 4.39 X10^3/uL (2.7-7.7); Neutrophil % 65.2 % (47-70); Platelet Count 315 K/mm3 (150-450); RBC Distribution Width CV 15.9 % (11.6-14.6); RBC Distribution Width SD 51.4 fl (35.1-43.9); White Blood Count 6.7 K/mm3 (4.4-11.0)
[2022-12-28 08:10] LABS: ALB/GLOB Ratio 0.7 RATIO (0.9-2.4); AST(SGOT) 14 U/L (15-37); Alanine Aminotransfer ALT/SGPT 18 U/L (16-61); Albumin, Serum 2.6 g/dL (3.2-5.0); Alkaline Phosphatase 134 U/L (45-117); Anion Gap 6 (5-15); BUN 22 mg/dL (7-18); Chloride 115 mmol/L (98-107); Creatinine, Serum 1.16 mg/dL (0.70-1.30); EST Glomerular Filtration Rate 66 mL/min (>60); Est Glom Filt Rate - Afr Amer 80 mL/min (>60); Globulin 3.8 g/dL (2.2-4.2); Glucose 100 mg/dL (74-106); Potassium 4.1 mmol/L (3.5-5.1); Protein, Total 6.4 g/dL (6.4-8.2); Sodium Level 147 mmol/L (136-145)
--- NOTE | 2022-12-28 08:28 | CT_ITS ---
PROCEDURE: CT DIRECTED RIGHT HEPATIC ABSCESS DRAINAGE, DATE OF EXAMINATION: December 28, 2022. INDICATION: Male, 67 years old. Abscess in the right lobe of the liver. PHYSICIAN: Ryan Eller M.D. CONSENT: Written informed consent was obtained having explained the risks, benefits and alternatives in detail with the patient who accepted the risks and agreed to proceed. Laboratory review and clinical assessment was performed. CONSCIOUS SEDATION PROTOCOL: The Drugs used were: 2 mg Versed, IV., and 50 mcg Fentanyl, IV. The sedation time was: 15 minutes. Conscious sedation was started at 10:17 AM and terminated at 10:32 AM. The conscious sedation protocol was independently monitored. RADIATION DOSAGE (If Supplied By Facility): CTDIvol = ( 20 ) mGy, DLP = ( 1842.34 ) mGycm. Individualized dose optimization techniques were utilized. TECHNIQUE: CT sections were made through the abdomen and pelvis revealing an abscess . The skin surface was prepped and draped in a sterile fashion. Puncture of this collection was performed initially with a 5 Amharic catheter and fluid was aspirated. An 8 Amharic Drainage catheter was then inserted into the collection and formed into position. Additional fluid was aspirated for a total of approximately 15 cc of cloudy red fluid. The catheter was sutured into position to allow for continued drainage. Followup CT sections reveals good position of the catheter. CT/Abscess/Fistula/Sinus Tract IMPRESSION: 1. CT directed drainage of a fluid collection using CT image guidance and image documentation as described. 2. Conscious Sedation protocol utilized with independent monitoring Electronically Signed: Ryan Eller MD at 11:10 EDT ,
[2022-12-28 09:43] LABS: International Normalized Ratio 1.1; Prothrombin Time (Protime)PT. 14.1 SECONDS (11.7-14.9)
[2022-12-28 09:53] LABS: Partial Thromboplast Time 33.5 Seconds (24.1-36.2)
[2022-12-28] MEDS: Midazolam 2 MG/2 ML Syringe IV (10:17)
[2022-12-28] MEDS: fentaNYL 100 MCG/2 ML Ampul IV (10:17)
[2022-12-28] MEDS: Lidocaine 2% (20 ml mdv) 20 ML Vial INFILT (10:20)
== END 2022-12-28 23:59 | disposition home or self-care (01) ==
PROVIDERS: PCP Family Medicine; Referring Provider Surgery; Visit Provider Surgery
DX: K75.0 Abscess of liver (principal); R10.9 Unspecified abdominal pain
CPT/HCPCS: 49405; 20501; 36415; 77012; 80053; 85025; 85610; 85730; 87070; 87075; 87205; 99156; J7050

== ENCOUNTER 2022-12-30 10:20 | Day surgery (SDC) | payer MEDICARE, OTHER, SELFPAY ==
--- NOTE | 2022-12-30 10:55 | PCM.HP.BLA ---
History and Physical Date of Admission: 12/30/22 Visit Reasons:?UPPER & LOWER Chief Complaint: liver abcess Pre Sales Architect Required: No Is patient in pain?: Yes Allergies No Known Allergies Allergy (Verified 12/28/22 07:47) Medications atorvastatin 40 mg tablet 40 mg PO QHS 09/12/19 [History Confirmed 12/28/22] fenofibrate 40 mg tablet 40 mg PO DAILY 09/12/19 [History Confirmed 12/16/22] escitalopram oxalate 20 mg tablet 20 mg PO DAILY 09/19/19 [History Confirmed 12/28/22] trazodone 100 mg tablet 100 mg PO QHS 12/03/19 [History Confirmed 12/16/22] aspirin 81 mg chewable tablet 81 mg PO DAILY@0800 12/04/19 [History Confirmed 12/16/22] amoxicillin 875 mg-potassium clavulanate 125 mg tablet ea PO 12/28/22 [History Confirmed 12/28/22] fenofibrate 160 mg tablet 160 mg PO 12/28/22 [History Confirmed 12/28/22] fluticasone propionate 50 mcg/actuation nasal spray,suspension spray intranasal 12/28/22 [History Confirmed 12/28/22] PFSH Medical History?(Updated 12/28/22 @ 08:01 by Kala Sullivan) Anxiety Depressive disorder HLD (hyperlipidemia) IBS (irritable bowel syndrome) Liver abscess Liver abscess Sebaceous cyst Septicemia Family History?(Updated 12/28/22 @ 07:46 by Kala Sullivan) Mother Colon cancerFather Kidney diseaseSister Kidney diseaseBrother Kidney disease Social History?(Updated 02/27/20 @ 09:[address] Rosanna Bernal, DO) Smoking Status:? Former smoker HPI HPI HPI: 67-year-old gentleman who is referred by infectious disease (Dr. Carlson Signs for surgical consultation regarding a liver abscess and a suspected colonic mass of the sigmoid colon.? A written compromise surgical consult and recommendations will return to her. The patient was seen in the office by Dr. Sands on December 22, 2022.? He had been on day 11 of IV antibiotics for liver abscess growing anaerobic gram-positive cocci and gram-positive rods.? He is in anemia persisting at 9.3.? A drain had been placed but ceased to drain and so it was removed.? He had been admitted on December 06, 2022 with abdominal pain chills fatigue and diarrhea with an acute 17 pound weight loss.? CT scan demonstrated a right hepatic lobe multiseptated mass with adjacent hypodensity.? He underwent percutaneous drainage of the right hepatic abscess demonstrating 400 cc of purulent fluid.? He initially was treated with Zosyn and was discharged on ertapenem.? He had a CT scan 2 days ago demonstrating persistence of the abscess the multilobe collection measures 10.9 x 8.5 x 6.5 cm.? This was said to be decreased from previously but the previous measurements not provided.? There is felt to be extensive sigmoid diverticulosis.? Within the sigmoid there is a mixed density 4.3 x 2.8 x 3.9 cm masslike lesion.? Because of this finding which apparently was seen on the previous CT but not commented upon it is recommended the patient have a colonoscopy and that is expressly the purpose of his referral.? The patient has evidence of a new small right pleural effusion. At the [facility] on December 22, 2022 white blood cell count was 9.6 hemoglobin 9.4 medical 30.8 platelet count 279,000.? 81% neutrophils.? BUN 20 and creatinine 1.02.? Total bilirubin was 1.1.? Alkaline phosphatase elevated at 143.? C-reactive protein elevated at 75.3.? Total protein 6.3.? Albumin low at 2.5.? Procalcitonin elevated to 0.14. The patient states that he lost over 20 pounds during this illness.? He was hospitalized at [facility] 3 weeks ago and was there for 8 days.? He had a PICC line in the right basilic vein which was removed just recently after his last outpatient dose of IV antibiotic.? His liver drain was removed by Dr. Carlson Signs as it was ceasing the drain. Today's laboratory demonstrates a white count of 6.7 with a hemoglobin 9.8 hematocrit 32.9 platelet count 315,000 He denies fever or chills or sweats.? No abdominal pain.? No bright red blood per rectum or melena.? He is feeling better and felt better immediately after the initial drainage of the liver abscess.? He denies myocardial infarction diabetes DVT stroke. He states that he had a colonoscopy he thinks 3 years ago.? He cannot remember the location where he had the colonoscopy.? He does have a family history of colon cancer in his mother. ROS General General: Yes weight change; No appetite, fatigue, colon cancer, breast cancer or weakness Additional Details: weight loss HEENT HEENT: No difficulty swallowing, eye injury, eye surgery, swollen glands or hoarseness Endo Endocrine: No thyroid disease, diabetes mellitus, thyroid cancer, Hair loss, heat intolerance or cold intolerance Skin Skin: No rash or changing moles Breast Breast: No left breast lump, right breast lump, nipple discharge, breast pain, abnormal mammogram, abnormal US or breast enlargement Musc Musculoskeletal: No back problems, arthritis, rheumatoid arthritis, gout or joint pain Cardio Cardiovascular: No murmur, pacemaker, heart disease, atrial fibrillation, high blood pressure, heart attack, heart stent, palpitations, shortness of breat with exertion or chest pain Psych Psychiatric: No depression, anxiety or hearing voices Resp Respiratory: No shortness of breath, No sleep apnea, No cough, No COPD, No asthma, No emphysema and No wheezing Gastro Gastrointestinal: Yes abdominal pain, No nausea or vomiting, No diarrhea, No constipation, No blood in stool, No acid reflux, No hemorrhoids, No ulcers, No gallbladder problem and No black,tarry stools Que Hematologic: No blood thinners, No blood disorders, No bleeding, No anemia and No blood clots Neuro Neurologic: No system reviewed and no additional complaints, except as documented, No as per HPI, No abnormal gait, No abnormal hearing, No abnormal movements, No abnormal speech, No behavioral changes, No burning sensations, No confusion, No convulsions, No disequilibrium, No dizziness, No localized weakness, No frequent falls, No headache(s), No lack of coordination, No loss of vision, No memory loss, No numbness, No other visual disturbances, No radicular pain, No restless legs, No sensory deficit, No syncope, No tingling, No tremor(s), No weakness and No other Exam Const General: cooperative, comfortable and no acute distress Orientation: alert and awake Other: Lips appear pale consistent with anemia [facility] Head: normal to inspection Eyes General: appearance normal, both eyes and all related structures Neck Neck: normal visual inspection Chest Chest palpation & inspection: normal inspection of the chest Resp Effort & Inspection: normal respiratory effort Auscultation: clear to auscultation bilaterally Cardio Rate: regular rate Rhythm: regular rhythm GI Palpation: soft Other: Overweight, no mass, no rebound, no tenderness Musc Cervical Spine: normal cervical lordosis Skin General: no rashes or lesions noted Neuro General: patient alert, patient awake and patient oriented x3 Extrem General: no calf tenderness Psych Appearance: grossly normal Assessment and Plan Assessment and Plan (1) Liver abscess: ?Status:?Acute (2) Colonic mass: ?Status:?Acute ?Plan: CMP and coags pending.? Patient is slated to have a repeat CT scan today with repeat drainage of the dominant abscess.? I have discussed with him in detail that he appears to have multiple additional loculations which likely do not communicate with the major abscess.? These may be problematic and unable to resolve with antibiotics.? He may still require going to a tertiary care center for specialty liver services. He has additionally been educated that the liver abscess did not arrive [place].? We are concerned that there is a driving force that was etiologic to this.? I have also instructed him that he appears to be at least 3 units shy on blood.? I recommend to him a combined esophagogastroduodenoscopy and colonoscopy with possible biopsy or polypectomy as indicated.? We discussed potential polypectomy or potential Marie ink tattooing and biopsy.? He is aware of the importance of attempting to find an etiologic source to his liver abscess.? He is to have his endoscopies performed this Monday, December 30, 2022.? He is to have his liver abscess to be drained today.? He will then return to the office to inspect the drain site make sure that it secured and then further discuss potential to irrigate the cavity. He has had an opportunity to ask and have questions answered.? I appreciate the opportunity of assisting with the surgical care. Copy: Dr. Zeus Posada and Dr. Carlson Signs Ryan Dumont M.D., F.A.C.S. ? ? ? Insert H&P no changes. The patient presents for a combined esophagogastroduodenoscopy and colonoscopy today to evaluate anemia and possible colonic mass in conjunction with his liver abscess which since his office visit has been drained per radiology and has a drain to a VICENTE bulb in place Ryan Dumont M.D., F.A.C.S.
[2022-12-30] MEDS: Lactated Ringers 1,000 ML 15 ML IV (11:00)
[2022-12-30 11:03] VITALS: BP 114/60; PULSE 57; RESP 16; TEMP 37.1; O2SAT 96; BMI 29.0
--- NOTE | 2022-12-30 11:30 | EGD_PTH ---
PATIENT: HORACE COE LOC: EN U#:[id number] AGE/SX: 67/M ROOM: RE12/30/[address]: Dr. Ryan Dumont MD : 1955 BED: DIS: 12/30/2022 SPEC #: [id number] RECD: 12/30/22 12:58 STATUS: SHABANA LATFI #: [id number] AILYN: 12/30/22 11:[address]: Ryan Dumont DEPT: SURGICAL PATHOLOGY RECD BY: Belinda Tanner ENTERED: 12/30/22 13:20 SP TYPE: EGD BIOPSY OT DR: Dr. Zeus Posada MD Tissues: A - Duodenum, NOS B - Gastric mucous membrane C - Esophagus, NOS Procedures: Surgery Specimen Level IV HEADER OPERATION: [place] [place] PRE-OP DIAGNOSIS: Liver abscess, colonic mass TISSUE SUBMITTED: A ? Duodenum biopsy, B ? Antrum biopsy for histo and H. pylori, C ? Distal esophagus biopsy MICROSCOPIC DIAGNOSIS A. Duodenum, biopsy: A fragment of duodenal mucosa, no pathologic diagnosis. B. Antrum, biopsy: Mild gastritis. See microscopic description and comment. C. Distal esophagus, biopsy: A fragment of squamous mucosa with mild chronic inflammation. SJ:rg 01/02/2023 COMMENT B. The results of immunohistochemistry for Helicobacter pylori will be reported separately ([id number]). MICROSCOPIC DESCRIPTION Slides are reviewed. B. The specimen shows fragments of gastric mucosa with chronic inflammatory cell infiltrates in the lamina propria consisting of lymphocytes and plasma cells, consistent with mild chronic gastritis. GROSS DESCRIPTION A - Received in fixative is one container labeled with the patient's name and designated duodenum biopsy. The specimen consists of one irregular fragment of light wu soft tissue that measures 0.3 x 0.3 x 0.1 cm. The specimen is totally submitted in one cassette. B - Received in fixative is one container labeled with the patient's name and designated antrum biopsy. The specimen consists of one irregular fragment of light wu soft tissue that measures 0.4 x 0.3 x 0.1 cm. The specimen is totally submitted in one cassette. C - Received in fixative is one container labeled with the patient's name and designated distal esophagus biopsy. The specimen consists of one irregular fragment of light wu soft tissue that measures 0.6 x 0.3 x 0.1 cm. The specimen is totally submitted in one cassette. / SJ:rg 12/30/2022 TC:3 CPT: 21543 x3
--- NOTE | 2022-12-30 11:30 | IMM_PTH ---
PATIENT: HORACE COE LOC: EN U#:[id number] AGE/SX: 67/M ROOM: RE12/30/[address]: Dr. Ryan Dumont MD : 1955 BED: DIS: 12/30/2022 SPEC #: [id number] RECD: 12/30/22 13:37 STATUS: SHABANA REQ #: [id number] AILYN: 12/30/22 11:[address]: Ryan Dumont DEPT: IMMUNOHISTOCHEMISTRY RECD BY: Cathy Rodriguez ENTERED: 12/30/22 13:37 SP TYPE: IMMUNO OTHR DR: Dr. Zeus Posada MD Tissues: B - Stomach, NOS Procedures: H Pylori (initial) PHYSICIAN & INSTITUTION [place] [address] SPECIMEN INFORMATION: Tissue Source: B ? Antrum biopsy Clinical Info: Liver abscess, colonic mass Specimen Number: [id number] CPT code: 09554 METHODOLOGY: Deparaffinized sections of prefer/formalin-fixed tissue or PAP/DQ stained slides are incubated with monoclonal/polyclonal antibodies/oligonucleotide probes. Localization is made via biotin free immunoperoxidase method. Appropriate controls are performed and reacted as expected. Results on target cell population are indicated in the following table: RESULTS: ANTIBODY / CLONE RESULT Block B H Pylori (polyclonal) negative These tests were developed and their performance characteristics determined by [facility]. They may not have been cleared or approved by the U.S. Food and Drug Administration. The FDA has determined that such clearance or approval is not necessary. The above immunohistochemical/dualISH markers are ordered and reviewed by the Pathologist. INTERPRETATION: B. Antrum, biopsy: Negative for Helicobacter pylori organisms. SJ:rashmi 01/02/2023
--- NOTE | 2022-12-30 12:24 | OP.EGD_ITS ---
Patient Name: Reginaldo Gan Procedure Date: 12/30/2022 11:44 AM Date of : 1955 Age: 67 Procedure: Upper GI endoscopy Indications: Iron deficiency anemia Providers: Ryan Dumont MD Referring MD: Zeus Posada Medicines: See the Anesthesia note for documentation of the administered medications Complications: No immediate complications. Procedure: Pre-Anesthesia Assessment: - Prior to the procedure, a History and Physical was performed, and patient medications and allergies were reviewed. The patient's tolerance of previous anesthesia was also reviewed. The risks and benefits of the procedure and the sedation options and risks were discussed with the patient. All questions were answered, and informed consent was obtained. Prior Anticoagulants: The patient has taken no previous anticoagulant or antiplatelet agents. ASA Grade Assessment: II - A patient with mild systemic disease. After reviewing the risks and benefits, the patient was deemed in satisfactory condition to undergo the procedure. After obtaining informed consent, the endoscope was passed under direct vision. Throughout the procedure, the patient's blood pressure, pulse, and oxygen saturations were monitored continuously. The gastroscope was introduced through the mouth, and advanced to the second part of duodenum. The upper GI endoscopy was accomplished without difficulty. The patient tolerated the procedure well. Scope In: 11:55:48 AM Scope Out: 11:59:42 AM Total Procedure Duration Time 0 hours 3 minutes 54 seconds Findings: The examined esophagus was normal. Biopsies were taken with a cold forceps for histology. The entire examined stomach was normal. Biopsies were taken with a cold forceps for histology. The examined duodenum was normal. Biopsies were taken with a cold forceps for histology. A small hiatal hernia was present. The Z-line was regular and was found 40 cm from the incisors. Impression: - Normal esophagus. Biopsied. - Normal stomach. Biopsied. - Normal examined duodenum. Biopsied. Recommendation: - Discharge patient to home. - Resume previous diet. - Continue present medications. - Telephone my office for pathology results in 1 week. No findings on the esophagogastroduodenoscopy to explain anemia. Procedure Code(s): --- Professional --- 97393, Esophagogastroduodenoscopy, flexible, transoral; with biopsy, single or multiple Diagnosis Code(s): --- Professional --- D50.9, Iron deficiency anemia, unspecified CPT copyright 2017 [employer]. All rights reserved. The codes documented in this report are preliminary and upon freight representative review may be revised to meet current compliance requirements. Ryan Dumont MD 12/30/2022 12:24:00 PM This report has been signed electronically. Number of Addenda: 0 Note Initiated On: 12/30/2022 11:44 AM
--- NOTE | 2022-12-30 12:24 | OP.CCLET_ITS ---
12/30/2022 Robyn Smith Md Re : Upper GI endoscopy procedure for Reginaldo Gan Dear Sarah This procedure was performed on Friday, December 30, 2022. My impressions and recommendations are as follows: Impressions : - Normal esophagus. Biopsied. - Normal stomach. Biopsied. - Normal examined duodenum. Biopsied. Recommendations : - Discharge patient to home. - Resume previous diet. - Continue present medications. - Telephone my office for pathology results in 1 week. No findings on the esophagogastroduodenoscopy to explain anemia. My findings are described in the full procedure note, which is enclosed. If I can be of further assistance, please feel free to contact me at Doctor phone number(s): Work: . Sincerely, Ryan Dumont MD 12/30/2022 12:24:00 PM This report has been signed electronically.
[2022-12-30 12:25] VITALS: BP 103/51; BP 114/60; PULSE 62; RESP 16; TEMP 37.4; O2SAT 98
--- NOTE | 2022-12-30 12:28 | OP.CCLET_ITS ---
12/30/2022 Robyn Smith Md Re : Colonoscopy procedure for Reginaldo Gna Dear Sarah This procedure was performed on Friday, December 30, 2022. My impressions and recommendations are as follows: Impressions : - Non-thrombosed internal hemorrhoids, internal hemorrhoids that prolapse with straining, but spontaneously regress to the resting position (Grade II) and enlarged prostate found on digital rectal exam. - Diverticulosis in the sigmoid colon and in the descending colon. - The examination was otherwise normal. - No specimens collected. Recommendations : - Discharge patient to home. - Resume previous diet. - Continue present medications. - Repeat colonoscopy is not recommended due to current age (66 years or older) for screening purposes. - Return to my office in 3 days. No evidence of malignancy. Very severe diverticular disease particularly of the sigmoid colon. Lumen is patent. Questional with there this could be etiologic to the patient's liver abscess. By report no previous findings on CT imaging regarding diverticulitis My findings are described in the full procedure note, which is enclosed. If I can be of further assistance, please feel free to contact me at Doctor phone number(s): Work: . Sincerely, Ryan Dumont MD 12/30/2022 12:28:24 PM This report has been signed electronically.
--- NOTE | 2022-12-30 12:28 | OP.COLON_ITS ---
Patient Name: Reginaldo Gan Procedure Date: 12/30/2022 12:00 PM Date of : 1955 Age: 67 Procedure: Colonoscopy Indications: Iron deficiency anemia Providers: Ryan Dumont MD Referring MD: Zeus Posada Medicines: See the Anesthesia note for documentation of the administered medications Patient Profile: Last Colonoscopy: date unknown. Complications: No immediate complications. Procedure: Pre-Anesthesia Assessment: - Prior to the procedure, a History and Physical was performed, and patient medications and allergies were reviewed. The patient's tolerance of previous anesthesia was also reviewed. The risks and benefits of the procedure and the sedation options and risks were discussed with the patient. All questions were answered, and informed consent was obtained. Prior Anticoagulants: The patient has taken no previous anticoagulant or antiplatelet agents. ASA Grade Assessment: II - A patient with mild systemic disease. After reviewing the risks and benefits, the patient was deemed in satisfactory condition to undergo the procedure. After I obtained informed consent, the scope was passed under direct vision. Throughout the procedure, the patient's blood pressure, pulse, and oxygen saturations were monitored continuously. The colonoscope was introduced through the anus and advanced to the cecum, identified by appendiceal orifice and ileocecal valve. The colonoscopy was somewhat difficult due to multiple diverticula in the colon. The patient tolerated the procedure well. The quality of the bowel preparation was good. The ileocecal valve and the appendiceal orifice were photographed. Scope In: 12:02:59 PM Scope Withdrawal Time 0 hours 5 minutes 59 seconds Scope Out: 12:16:52 PM Total Procedure Duration Time 0 hours 13 minutes 53 seconds Findings: The digital rectal exam findings include non-thrombosed internal hemorrhoids, internal hemorrhoids that prolapse with straining, but spontaneously regress to the resting position (Grade II) and enlarged prostate. Multiple diverticula were found in the sigmoid colon and descending colon. The exam was otherwise without abnormality. Impression: - Non-thrombosed internal hemorrhoids, internal hemorrhoids that prolapse with straining, but spontaneously regress to the resting position (Grade II) and enlarged prostate found on digital rectal exam. - Diverticulosis in the sigmoid colon and in the descending colon. - The examination was otherwise normal. - No specimens collected. Recommendation: - Discharge patient to home. - Resume previous diet. - Continue present medications. - Repeat colonoscopy is not recommended due to current age (66 years or older) for screening purposes. - Return to my office in 3 days. No evidence of malignancy. Very severe diverticular disease particularly of the sigmoid colon. Lumen is patent. Questional with there this could be etiologic to the patient's liver abscess. By report no previous findings on CT imaging regarding diverticulitis Procedure Code(s): --- Professional --- 15821, Colonoscopy, flexible; diagnostic, including collection of specimen(s) by brushing or washing, when performed (separate procedure) Diagnosis Code(s): --- Professional --- K64.1, Second degree hemorrhoids D50.9, Iron deficiency anemia, unspecified N40.0, Benign prostatic hyperplasia without lower urinary tract symptoms K57.30, Diverticulosis of large intestine without perforation or abscess without bleeding CPT copyright 2017 [employer]. All rights reserved. The codes documented in this report are preliminary and upon certified procedural coder review may be revised to meet current compliance requirements. Ryan Dumont MD 12/30/2022 12:28:24 PM This report has been signed electronically. Number of Addenda: 0 Note Initiated On: 12/30/2022 12:00 PM
[2022-12-30 12:30] VITALS: BP 114/60; BP 121/60; PULSE 66; RESP 16; O2SAT 97
[2022-12-30 12:35] VITALS: BP 114/60; BP 116/64; PULSE 63; RESP 16; O2SAT 97
[2022-12-30 12:40] VITALS: BP 114/60; BP 125/63; PULSE 67; RESP 16; O2SAT 97
[2022-12-30 12:41] VITALS: BP 114/60; BP 125/63; PULSE 64; RESP 16; TEMP 36.8; O2SAT 96
== END 2022-12-30 13:33 | disposition home or self-care (01) ==
LOC: EN 10:20 → AC 10:21
PROVIDERS: PCP Family Medicine; Referring Provider Family Medicine; Visit Provider Surgery
PROC: 0DJD8ZZ Inspection of Lower Intestinal Tract, Via Natural or Artificial Opening Endoscopic (ICD-10-PCS; CPT 45378; principal; 2022-12-30 11:25)
DX: D50.9 Iron deficiency anemia, unspecified (principal); K64.1 Second degree hemorrhoids; R79.82 Elevated C-reactive protein (CRP); K75.0 Abscess of liver; N40.0 Benign prostatic hyperplasia without lower urinary tract symptoms; R16.0 Hepatomegaly, not elsewhere classified; K57.30 Diverticulosis of large intestine without perforation or abscess without bleeding; Z87.891 Personal history of nicotine dependence; Z79.899 Other long term (current) drug therapy; Z79.82 Long term (current) use of aspirin; E78.5 Hyperlipidemia, unspecified; F41.9 Anxiety disorder, unspecified; F32.A Depression, unspecified
CPT/HCPCS: 45378; 43239; 88305; 88342; J7120; J2405

== ENCOUNTER → 2023-01-02 | Outpatient (CLI) | payer MEDICARE, OTHER, SELFPAY ==
--- NOTE | 2023-01-02 10:43 | CT_ITS ---
STUDY: CT ABDOMEN WITH CONTRAST REASON FOR EXAM: Male, 67 years old. Liver abscess RADIATION DOSAGE (If Supplied By Facility): CTDIvol = ( 15.60 ) mGy, DLP = ( 549.78 ) mGycm TECHNIQUE: Transaxial images were obtained post I.V. administration of IV 100mL Isovue-300, and without oral contrast. Sagittal and coronal images were reconstructed. Individualized dose optimization techniques were used for this CT. COMPARISON: Comparison is made with prior study December 28, 2022 FINDINGS: Small right pleural effusion with right pulmonary infiltrate. The visualized portions of the heart are within normal limits. Since prior study, there has been a progression of the right hepatic abscess probably in the region of the dome of the right lobe of the liver. The catheter is within the mid inferior portion of the abscess collection. Normal gallbladder and extrahepatic biliary system. Normal spleen. Normal pancreas. Small bilateral renal cysts. CT/Abdomen WITH IV Contrast IMPRESSION: Progressive increase in size of the right hepatic abscess. Persistent right pleural effusion and right basilar infiltrates. The catheter is within the inferior tip of the abscess collection. Electronically Signed: Ryan Eller MD at 11:21 EDT ,
== END | disposition home or self-care (01) ==
LOC: CT 10:42
PROVIDERS: PCP Family Medicine; Referring Provider Surgery; Visit Provider Surgery
DX: K75.0 Abscess of liver (principal)
CPT/HCPCS: 74160; Q9967

== ENCOUNTER → 2023-02-27 | Outpatient (CLI) | payer MEDICARE, OTHER, SELFPAY ==
[2023-02-27 09:13] LABS: Erythrocyte Sedimentation Rate < 1 mm/hr (0-20)
[2023-02-27 09:15] LABS: Absolute Lymphocyte Count 1.34 X10^3/uL (0.83-4.51); Absolute Neutrophil Count 4.4 X10^3/uL (2.0-7.7); Basophil# 0.02 X10^3/uL; Basophil% 0.3 % (0-1); Eosinophil# 0.41 X10^3/uL; Hematocrit 40.8 % (40-54); Hemoglobin 12.7 g/dL (13.0-16.5); Lymphocyte # 1.34 X10^3/ul (0.83-4.51); Lymphocyte % 19.7 % (19-41); Mean Corp Hgb Conc 31.1 g/dL (32-36); Mean Corpuscular Hgb 27.3 pg (27.0-32.0); Mean Corpuscular Volume 87.6 fL (80-94); Mean Platelet Vol. 9.6 fl (6.2-12.0); Monocyte# 0.55 X10^3/uL; Monocyte% 8.1 % (0-10); NRBC Flagged by Analyzer 0 % (0-5); Neutrophil % 64.9 % (47-70); Platelet Count 236 K/mm3 (150-450); RBC Distribution Width CV 15.8 % (11.6-14.6); RBC Distribution Width SD 50.5 fl (35.1-43.9); Red Blood Count 4.66 M/mm3 (4.6-6.2); White Blood Count 6.8 K/mm3 (4.4-11.0)
[2023-02-27 09:36] LABS: CRP < 2.90 mg/L (0.0-3.0)
[2023-02-27 10:34] LABS: Procalcitonin < 0.04 ng/mL (0.00-0.09)
== END | disposition home or self-care (01) ==
LOC: LAB 08:00
PROVIDERS: PCP Family Medicine; Referring Provider Internal Medicine Infectious Disease; Visit Provider Internal Medicine Infectious Disease
DX: K75.0 Abscess of liver (principal); D63.8 Anemia in other chronic diseases classified elsewhere
CPT/HCPCS: 36415; 84145; 85025; 85652; 86140